=== PATIENT | female | born 1960 | race Caucasian/White ===

== ENCOUNTER 2018-09-22 13:43 | Inpatient (IN) | payer OTHER ==
[~2018-09-22] VITALS: Ht 165.1 cm; Wt 104.7 kg
--- NOTE | 2018-09-22 13:52 | NUR ---
BIB [facility] FOR C/O SOB STARTED 3 WKS AGO. WENT TO [facility] AND HAD CXR WHICH SHOULD PNA. SENT HERE FOR IV ANTX AND FURTHER TX. VS [employer] BP 120/70, HR HIGH 90'S, BS 149, ON 6L SATING 93%. PT RESTING ON GURNEY. NADN. MONITORS APPLIED. WARM BLANKET PROVIDED.
[2018-09-22] MEDS ORDERED: LISI-167 PO (14:00)
[2018-09-22] MEDS ORDERED: METF500T17 PO (14:00)
[2018-09-22] MEDS ORDERED: ATOR-2 PO (14:00)
--- NOTE | 2018-09-22 15:00 | NUR ---
PT RESTING ON GURNEY. NADN. AMEZQUITA.
--- NOTE | 2018-09-22 15:06 | NUR ---
PT AMBULATORY TO RESTROOM AND BACK TO BED. PT RA SATS AT 82%. ERP NOTIFIED. AWAITING ORDERS.
[2018-09-22] MEDS ORDERED: CEFTRIAXONE PMX 1GM/50ML 50 ML ONE (15:11)
[2018-09-22] MEDS ORDERED: ALBUTEROL/IPRATROPIUM 2.5MG/0.5MG, 3 ML ONE (15:16)
--- NOTE | 2018-09-22 15:27 | NUR ---
RT AT BEDSIDE.
[2018-09-22] MEDS ORDERED: AZITHROMYCIN 500 MG in SODIUM CHLORIDE 0.9% 250 ML IVPB ONE (15:30)
[2018-09-22] MEDS ORDERED: CEFTRIAXONE PMX 1GM/50ML 50 ML IVPB ONE (15:30)
[2018-09-22] MEDS ORDERED: SODIUM CHLORIDE FLUSH 10ML SYR IVF ONE (15:30)
[2018-09-22] MEDS ORDERED: ALBUTEROL/IPRATROPIUM 2.5MG/0.5MG, 3 ML NPPB ONE (15:30)
[2018-09-22 15:37] LABS: MEAN CORPUSCULAR HEMOGLOBIN 28.6 pg (27.0-34.8); MEAN CORPUSCULAR HGB CONC 32.1 g/dL (32.4-35.8); MEAN CORPUSCULAR VOLUME 89.1 fL (80-100); MEAN PLATELET VOLUME 9.5 fL (7.4-10.4); PLATELET COUNT 236 x10^3/uL (130-400); RED BLOOD COUNT 4.98 x10^6/uL (3.82-5.3); RED CELL DISTRIBUTION WIDTH 16.3 % (9.6-15.2)
[2018-09-22 15:44] LABS: ALBUMIN 3.2 g/dL (3.4-5.0); ANION GAP 4 mmol/L (5-15); CHLORIDE 99 mmol/L (98-107)
[2018-09-22 16:03] LABS: BASOPHILS % (AUTO) 0 % (0-1); EOSINOPHILS % (AUTO) 1 % (1-7); LYMPHOCYTES # (AUTO) 1.85 x10^3/uL (1-3.4); LYMPHOCYTES % (AUTO) 13 % (22-44); MD SCAN; MONOCYTES # (AUTO) 1.72 x10^3/uL (0.2-0.8); MONOCYTES % (AUTO) 12 % (2-9); NEUTROPHILS # (AUTO) 10.59 x10^3/uL (1.8-6.8); NEUTROPHILS % (AUTO) 74 % (42-75)
[2018-09-22] MEDS ORDERED: ACETAMINOPHEN 325 MG TABLET ONE (16:42)
[2018-09-22] MEDS: ACETAMINOPHEN 325 MG TABLET PO ONE ×2 (16:43→16:45)
[2018-09-22] MEDS ORDERED: SODIUM CHLORIDE FLUSH 10ML SYR IVF PRN (17:00)
--- NOTE | 2018-09-22 17:08 | NUR ---
PT RESTING ON GURNEY. NADN. AMEZQUITA.
--- NOTE | 2018-09-22 17:13 | NUR ---
[facility] DR. BARAJAS AT BEDSIDE.
[2018-09-22] MEDS ORDERED: ACETAMINOPHEN 325 MG TABLET PO PRN (17:30)
[2018-09-22] MEDS ORDERED: DOCUSATE 100 MG CAPSULE PO PRN (17:30)
[2018-09-22] MEDS ORDERED: ONDANSETRON 2MG/ML, 2ML IVPush PRN (17:30)
[2018-09-22] MEDS ORDERED: ONDANSETRON ODT 4 MG PO PRN (17:30)
[2018-09-22] MEDS ORDERED: POLYETHYLENE GLYCOL 17 GM PACKET PO PRN (17:30)
--- NOTE | 2018-09-22 17:32 | NUR ---
REPORT GIVEN TO ZOË DAVIS RN. ALL QUESTIONS ANSWERED. AWAITING PT TRANSPORT.
[2018-09-22] MEDS: ALBUTEROL/IPRATROPIUM 2.5MG/0.5MG, 3 ML NPPB SCH (20:00)
[2018-09-22 20:08] VITALS: BP 110/70
[2018-09-22] MEDS: NICOTINE 14MG/24 HR PATCH.TD24 TD SCH (20:10)
[2018-09-22] MEDS: ATORVASTATIN 10 MG TABLET PO SCH (20:11)
[2018-09-22] MEDS: ENOXAPARIN 40 MG/0.4 ML SQ SCH (20:11)
[2018-09-22] MEDS: INSULIN LISPRO 100 UNITS/ML, PEN SQ-INSULIN SCH (21:00)
[2018-09-23 00:38] VITALS: BP 94/59
[2018-09-23] MEDS: GUAIFENESIN/DM 200-20MG, 10ML UDC PO PRN ×2 (00:53→01:06)
[2018-09-23] MEDS: CEFTRIAXONE PMX 2GM/50ML 50 ML IV SCH (03:03)
[2018-09-23 04:46] LABS: MEAN CORPUSCULAR HEMOGLOBIN 29.1 pg (27.0-34.8); MEAN CORPUSCULAR HGB CONC 32.6 g/dL (32.4-35.8); MEAN CORPUSCULAR VOLUME 89.3 fL (80-100); MEAN PLATELET VOLUME 9.8 fL (7.4-10.4); PLATELET COUNT 212 x10^3/uL (130-400); RED BLOOD COUNT 4.68 x10^6/uL (3.82-5.3); RED CELL DISTRIBUTION WIDTH 16.3 % (9.6-15.2)
[2018-09-23 04:56] LABS: ANION GAP 4 mmol/L (5-15); CALCIUM 8.5 mg/dL (8.5-10.1); CHLORIDE 99 mmol/L (98-107)
[2018-09-23 05:00] LABS: CREATININE 0.62 mg/dL (0.55-1.02)
[2018-09-23 05:49] LABS: BASOPHILS # (AUTO) 0.04 x10^3/uL (0-0.1); BASOPHILS % (AUTO) 0 % (0-1); EOSINOPHILS # (AUTO) 0.16 x10^3/uL (0-0.4); EOSINOPHILS % (AUTO) 1 % (1-7); LYMPHOCYTES # (AUTO) 1.45 x10^3/uL (1-3.4); LYMPHOCYTES % (AUTO) 10 % (22-44); MD SCAN; MONOCYTES % (AUTO) 12 % (2-9); NEUTROPHILS # (AUTO) 10.75 x10^3/uL (1.8-6.8); NEUTROPHILS % (AUTO) 76 % (42-75)
[2018-09-23 06:49] VITALS: BP 127/79
[2018-09-23] MEDS: INSULIN LISPRO 100 UNITS/ML, PEN SQ-INSULIN SCH ×4 (07:00→20:53)
[2018-09-23] MEDS: ALBUTEROL/IPRATROPIUM 2.5MG/0.5MG, 3 ML NPPB SCH ×4 (07:04→20:00)
[2018-09-23] MEDS: AZITHROMYCIN 500 MG TABLET PO SCH (07:58)
[2018-09-23] MEDS: LISINOPRIL 10 MG TABLET PO SCH (07:59)
[2018-09-23] MEDS: FLUTICASONE NASAL SPRAY 16GM NAS SCH ×2 (11:40→20:53)
[2018-09-23 12:16] VITALS: BP 111/66
[2018-09-23] MEDS: NICOTINE 14MG/24 HR PATCH.TD24 TD SCH (17:30)
[2018-09-23] MEDS: ENOXAPARIN 40 MG/0.4 ML SQ SCH (18:05)
[2018-09-23 18:44] VITALS: BP 112/69
[2018-09-23] MEDS ORDERED: OMNIPAQUE 350 MG/ML, 100ML BOTTLE ONE (19:17)
[2018-09-23] MEDS: ATORVASTATIN 10 MG TABLET PO SCH (20:53)
[2018-09-24 00:58] VITALS: BP 109/68
[2018-09-24] MEDS: CEFTRIAXONE PMX 2GM/50ML 50 ML IV SCH (03:07)
[2018-09-24] MEDS ORDERED: ALBUTEROL/IPRATROPIUM 2.5MG/0.5MG, 3 ML ONE (03:59)
[2018-09-24] MEDS: ALBUTEROL/IPRATROPIUM 2.5MG/0.5MG, 3 ML NPPB SCH ×5 (04:11→20:00)
[2018-09-24 04:59] LABS: BASOPHILS # (AUTO) 0.03 x10^3/uL (0-0.1); BASOPHILS % (AUTO) 0 % (0-1); EOSINOPHILS # (AUTO) 0.29 x10^3/uL (0-0.4); EOSINOPHILS % (AUTO) 2 % (1-7); LYMPHOCYTES # (AUTO) 1.49 x10^3/uL (1-3.4); LYMPHOCYTES % (AUTO) 11 % (22-44); MD NO; MEAN CORPUSCULAR HEMOGLOBIN 28.8 pg (27.0-34.8); MEAN PLATELET VOLUME 9.2 fL (7.4-10.4); MONOCYTES # (AUTO) 1.44 x10^3/uL (0.2-0.8); MONOCYTES % (AUTO) 10 % (2-9); NEUTROPHILS # (AUTO) 10.71 x10^3/uL (1.8-6.8); NEUTROPHILS % (AUTO) 77 % (42-75); PLATELET COUNT 241 x10^3/uL (130-400); RED BLOOD COUNT 4.81 x10^6/uL (3.82-5.3); RED CELL DISTRIBUTION WIDTH 16.4 % (9.6-15.2)
[2018-09-24 05:08] LABS: ANION GAP 3 mmol/L (5-15); CHLORIDE 100 mmol/L (98-107); CREATININE 0.59 mg/dL (0.55-1.02)
[2018-09-24 07:19] VITALS: BP 114/71
[2018-09-24] MEDS: INSULIN LISPRO 100 UNITS/ML, PEN SQ-INSULIN SCH ×4 (07:59→20:51)
[2018-09-24] MEDS: LISINOPRIL 10 MG TABLET PO SCH (08:00)
[2018-09-24] MEDS: AZITHROMYCIN 500 MG TABLET PO SCH (08:00)
[2018-09-24] MEDS: FLUTICASONE NASAL SPRAY 16GM NAS SCH ×2 (08:01→20:51)
[2018-09-24] MEDS: methylPREDNISolone SOD SUCC 125 MG/2 ML IVPush SCH ×3 (12:05→23:28)
[2018-09-24 12:44] VITALS: BP 115/71
[2018-09-24] MEDS: NICOTINE 14MG/24 HR PATCH.TD24 TD SCH (18:10)
[2018-09-24] MEDS: ENOXAPARIN 40 MG/0.4 ML SQ SCH (18:11)
[2018-09-24 19:09] VITALS: BP 116/70
[2018-09-24] MEDS ORDERED: ALBUTEROL SULFATE 2.5 MG/3 ML ONE (19:57)
[2018-09-24] MEDS: ATORVASTATIN 10 MG TABLET PO SCH (20:50)
[2018-09-25 01:48] VITALS: BP 117/72
[2018-09-25] MEDS: CEFTRIAXONE PMX 2GM/50ML 50 ML IV SCH (03:10)
[2018-09-25] MEDS: methylPREDNISolone SOD SUCC 125 MG/2 ML IVPush SCH ×3 (05:19→17:30)
[2018-09-25 07:10] VITALS: BP 107/73
[2018-09-25] MEDS: ALBUTEROL SULFATE 2.5 MG/3 ML NPPB SCH ×3 (07:11→16:12)
[2018-09-25] MEDS: LISINOPRIL 10 MG TABLET PO SCH (08:57)
[2018-09-25] MEDS: AZITHROMYCIN 500 MG TABLET PO SCH (08:57)
[2018-09-25] MEDS: INSULIN LISPRO 100 UNITS/ML, PEN SQ-INSULIN SCH ×5 (08:59→16:23)
[2018-09-25] MEDS: FLUTICASONE NASAL SPRAY 16GM NAS SCH (09:04)
[2018-09-25 14:00] VITALS: BP 105/65
[2018-09-25] MEDS ORDERED: IPRA3AMP30 INH (15:14)
[2018-09-25] MEDS ORDERED: FLUT1DIS3 INH (15:14)
[2018-09-25] MEDS ORDERED: PRED10TA PO (15:14)
[2018-09-25] MEDS ORDERED: POLY17PO5 PO (15:14)
[2018-09-25] MEDS ORDERED: TIOT18CA INH (15:14)
[2018-09-25] MEDS ORDERED: CEFD300C37 PO (15:14)
[2018-09-25] MEDS ORDERED: AZIT500T5 PO (15:14)
[2018-09-25] MEDS: ENOXAPARIN 40 MG/0.4 ML SQ SCH (17:30)
[2018-09-25] MEDS: NICOTINE 14MG/24 HR PATCH.TD24 TD SCH (17:53)
== END 2018-09-25 16:00 | disposition home or self-care (01) | DRG 871 ==
LOC: ED 16:34 → EDIP 16:56 → 3NW 17:53
PROVIDERS: ADMIT Internal Medicine; ATTEND Internal Medicine
DX: A41.9 Sepsis, unspecified organism (principal); J18.9 Pneumonia, unspecified organism; J96.01 Acute respiratory failure with hypoxia; J44.0 Chronic obstructive pulmonary disease with (acute) lower respiratory infection; J44.1 Chronic obstructive pulmonary disease with (acute) exacerbation; E11.9 Type 2 diabetes mellitus without complications; E78.5 Hyperlipidemia, unspecified; F17.210 Nicotine dependence, cigarettes, uncomplicated; I10 Essential (primary) hypertension; Z83.3 Family history of diabetes mellitus
CPT/HCPCS: 36415; 84145; 99285; J7613; J7620; 71045; 71275; 80048; 82040; 82962; 83605; 85025; 85379; 87040; 93005; 94640; 96365; 96375; G0378; J0456; J0696; J1650; Q9967; J1815; J2930; J7050